=== PATIENT | male | born 1995 | race Hispanic/Latino ===

== ENCOUNTER 2016-12-09 00:37 | Emergency (ER) | payer OTHER ==
[2016-12-09 00:57] VITALS: BP 153/84; PULSE 74; RESP 18; TEMP 97.7; O2SAT 98
[2016-12-09] MEDS ORDERED: Sodium Chloride 0.9% 1,000 ML IV STA (01:32)
[2016-12-09 01:48] LABS: BASO # 0.1 K/uL (0.0-0.2); BASO % 0.7 % (0.0-2.0); EOS # 0.1 K/uL (0.0-0.7); EOS % 1.6 % (0.0-4.0); HEMATOCRIT 45.8 % (35.0-51.0); LYMPH # 2.3 K/uL (1.0-4.3); LYMPH % 30.3 % (20.0-40.0); MEAN CELL VOLUME 89.5 fl (80.0-94.0); MEAN CORPUSCULAR HEMOGLOBIN 30.2 pg (27.0-31.0); MEAN CORPUSCULAR HGB CONC 33.7 g/dL (33.0-37.0); MEAN PLATELET VOLUME 9.4 fl (7.2-11.7); MONO # 0.5 K/uL (0.0-0.8); MONO % 5.9 % (0.0-10.0); NEUT # 4.7 K/uL (1.8-7.0); NEUT % 61.5 % (50.0-75.0); RED CELL DISTRIBUTION WIDTH 13.4 % (11.5-14.5); WHITE BLOOD COUNT 7.7 K/uL (4.8-10.8)
[2016-12-09 01:50] LABS: RBC URINE < 1 /hpf (0-3); URINE BILIRUBIN NEGATIVE (NEGATIVE); URINE BLOOD NEGATIVE (NEGATIVE); URINE COLOR YELLOW (YELLOW); URINE GLUCOSE (UA) NEG (Normal); URINE KETONE NEGATIVE (NEGATIVE); URINE LEUKOCYTE ESTERASE TRACE Leu/uL (Negative); URINE PROTEIN NEGATIVE (NEGATIVE); URINE UROBILINOGEN 0.2-1.0 mg/dL (0.2-1.0); WBC URINE 4 /hpf (0-5)
[2016-12-09 01:55] LABS: ALB/GLOB RATIO 1.8 (1.0-2.1); ALCOHOL SERUM < 10 mg/dl (0-10); ALKALINE PHOSPHATASE 43 U/L (38-126); ALT/SGPT 23 U/L (21-72); AST/SGOT 23 U/L (17-59); BILIRUBIN,TOTAL 0.8 mg/dl (0.2-1.3); BLOOD UREA NITROGEN 19 mg/dl (9-20); CALCIUM 9.5 mg/dL (8.4-10.2); CARBON DIOXIDE 24 mmol/L (22-30); CHLORIDE 105 mmol/L (98-107); GFR AFRICAN-AMERICAN > 60; GLUCOSE,RANDOM 125 mg/dL (75-110); POTASSIUM 3.5 MMOL/L (3.6-5.0); SODIUM 143 mmol/l (132-148); TOTAL PROTEIN 7.4 G/DL (6.3-8.2)
--- NOTE | 2016-12-09 02:37 | ED PDOC ---
HPI: Chest Pain Time Seen by Provider: 12/09/16 01:08 Chief Complaint (Nursing): Palpitations Chief Complaint (Provider): Palpitations History Per: Patient History/Exam Limitations: no limitations Onset/Duration Of Symptoms: Hrs (x1) Additional Complaint(s): 1:08 Jack Trotter, 21 year old male presents to the ED on 12/09/16 with palpitations and shortness of breath occurring 1 hour prior to arrival. Patient reports that while driving his vehicle, he developed acute palpitations, shortness of breath , light-headedness, weakness, and a sense of shaking. The patient reports that he has had previous panic attacks but has never experienced the shaking symptoms before. The patient reports nausea and that his symptoms have resolved upon arrival to the Emergency Room. Of note, the patient reports that he did not eat 10 hours prior to arrival in the Emergency Room. Prior to this, he hate gluten products which he normally avoids due to gluten sensitivity. Past Medical History Reviewed: Historical Data, Nursing Documentation, Vital Signs Vital Signs: Last Vital Signs Temp 97.7 F 12/09/16 00:55 Pulse 74 12/09/16 00:55 Resp 18 12/09/16 00:55 BP 153/84 H 12/09/16 00:55 Pulse Ox 98 12/09/16 00:55 - Medical History PMH: No Chronic Diseases - Surgical History Surgical History: No Surg Hx - Family History Family History: States: Unknown Family Hx - Social History Current smoker - smoking cessation education provided: No Alcohol: None Drugs: Denies - Allergies Allergies/Adverse Reactions: Allergies Allergy/AdvReac Type Severity Reaction Status Date / Time No Known Allergies Allergy Verified 12/09/16 00:54 Review of Systems Constitutional: Positive for: Weakness, Other (sense of shaking) Cardiovascular: Positive for: Palpitations (acute), Light Headedness Respiratory: Positive for: Shortness of Breath Physical Exam - Reviewed Nursing Documentation Reviewed: Yes Vital Signs Reviewed: Yes - Physical Exam Appears: Positive for: Non-toxic, No Acute Distress Head Exam: Positive for: ATRAUMATIC, NORMOCEPHALIC Skin: Positive for: Normal Color, Warm, Dry Eye Exam: Positive for: Normal appearance ENT: Positive for: Normal ENT Inspection Neck: Positive for: Normal, Painless ROM, Supple Cardiovascular/Chest: Positive for: Regular Rate, Rhythm, Chest Non Tender Respiratory: Positive for: Normal Breath Sounds. Negative for: Respiratory Distress Gastrointestinal/Abdominal: Positive for: Normal Exam, Soft. Negative for: Tenderness Back: Positive for: Normal Inspection Extremity: Positive for: Normal ROM Neurologic/Psych: Positive for: Alert, Oriented (x3) - Laboratory Results Result Diagrams: 12/09/16 01:44 12/09/16 01:44 - ECG O2 Sat by Pulse Oximetry: 98 (RA) Pulse Ox Interpretation: Normal Medical Decision Making Medical Decision Makin:08 Initial Impression: 21 year old male with palpitations, shortness of breath, and previous anxiety attacks. Initial Plan: * Electrocardiogram Stat * Alcohol Serum Stat * Drug Screen, Urine Stat * CBC (With Differential) Stat * Sodium Chloride 0.9% 1,000 ml IV 1,000 mls/hr * IV Insertion (Saline Lock) Once * Accucheck Stat * Urinalysis Stat * Reevaluation 2:12 Labs reviewed and show no clinically significant abnormalities. The patient is asymptomatic in the Emergency Department and was discharged home. Diagnosis: Palpitations, panic attack Condition: Improved Patient agreed to treatment plan and diagnosis. Scribe Attestation: Documented by Shaniqua Diana, acting as a scribe for Yusef Tidwell MD. Provider Scribe Attestation: All medical record entries made by the Scribe were at my direction and personally dictated by me. I have reviewed the chart and agree that the record accurately reflects my personal performance of the history, physical exam, medical decision making, and the department course for this patient. I have also personally directed, reviewed, and agree with the discharge instructions and disposition. Disposition - Clinical Impression Clinical Impression: Anxiety, Palpitations - Disposition Disposition Time: 02:12 Condition: STABLE Instructions: Palpitations (ED), Panic Attack (ED)
--- NOTE | 2016-12-09 13:06 | CARD ---
APPROVED REPORT EKG Measurement Heart [id number] <Conclusion> Sinus rhythm with marked sinus arrhythmia Otherwise normal ECG
== END 2016-12-09 02:31 | disposition home or self-care (01) ==
LOC: H.ER 00:37
DX: R00.2 Palpitations (principal); R06.02 Shortness of breath; F41.1 Generalized anxiety disorder; F41.0 Panic disorder [episodic paroxysmal anxiety]